=== PATIENT | female | born 1970 | race African-American/Black ===

== ENCOUNTER 2017-05-11 10:24 | Observation (INO) | payer SELFPAY ==
[~2017-05-11] VITALS: Ht 167.6 cm; Wt 95.0 kg
[~2017-05-11 10:24] MED LIST: IBUP-238 PO
[2017-05-11 10:32] VITALS: BP 145/89; PULSE 79; RESP 20; TEMP 98.8; O2SAT 99
--- NOTE | 2017-05-11 10:33 | PD ---
HPI Chief Complaint: chest pain Time Seen by Provider: 10:33 Travel History International Travel<30 days: No Contact w/Intl Traveler<30days: No History of Present Illness HPI 47-year-old female with PMH of untreated GERD and chest pain presents to the ED for evaluation of 03/12 midsternal chest pain. Onset while the patient was eating a sandwich. Patient states this was preceded by an episode of vomiting. She endorses accompanying shortness of breath and nausea. She denies palpitations or diaphoresis. She states this pain is similar to previous pains. She denies fever, chills, cough, abdominal pain, dysuria, back pain. She is unsure if she ever had a heart workup. She has no primary care. She is a poor historian. PFSH Past Medical History Arthritis: No Autoimmune Disease: No Blood Disorders: No Depression: Yes Heart Rhythm Problems: No Cancer: No Cardiac Catheterization: No Cardiovascular Problems: Yes High Cholesterol: No Chemotherapy: No Chest Pain: Yes (BEEN HOSPITALIZED FOR) Congestive Heart Failure: No Diabetes: No Endocrine: No Genitourinary: No Headaches: Yes Hypertension: No Immune Disorder: No Musculoskeletal: Yes Neurologic: Yes Psychiatric: Yes Reproductive: No Respiratory: Yes Immunizations Current: Yes Myocardial Infarction: No Radiation Therapy: No Past Surgical History Abdominal Surgery: Yes ( X 1) Cardiac Surgery: No Section: Yes Coronary Artery Bypass Graft: No Ear Surgery: No Endocrine Surgery: No Eye Surgery: No Genitourinary Surgery: No Gynecologic Surgery: Yes (Right Breast Biopsy) Oral Surgery: No Thoracic Surgery: No Other Surgery: Yes Social History Alcohol Use: No Tobacco Use: No Substance Use: No Allergies-Medications (Allergen,Severity, Reaction): Coded Allergies: No Known Allergies (Verified , 05/11/17) Reported Meds & Prescriptions Reported Meds & Active Scripts Active No Active Prescriptions or Reported Medications Review of Systems Except as stated in HPI: all other systems reviewed are Neg Physical Exam Narrative GENERAL: Well-nourished, well-developed nontoxic appearing after mental female in no acute distress. SKIN: Focused skin assessment warm/dry. HEAD: Normocephalic. EYES: No scleral icterus. No injection or drainage. NECK: Supple, trachea midline. No JVD or lymphadenopathy. CARDIOVASCULAR: Regular rate and rhythm without murmurs, gallops, or rubs. RESPIRATORY: Breath sounds clear and equal bilaterally. No accessory muscle use. GASTROINTESTINAL: Abdomen soft, non-tender, nondistended. Positive epigastric tenderness palpation. Active bowel signs. MUSCULOSKELETAL: No cyanosis, or edema. BACK: Nontender without obvious deformity. No CVA tenderness. Data Data Last Documented VS Vital Signs Date Time Temp Pulse Resp B/P Pulse Ox O2 Delivery O2 Flow Rate FiO2 05/11/17 10:52 100 Room Air 05/11/17 10:37 74 20 05/11/17 10:32 98.8 145/89 Orders Electrocardiogram (05/11/17 10:39) Ckmb (Isoenzyme) Profile (05/11/17 10:39) Complete Blood Count With Diff (05/11/17 10:39) Comprehensive Metabolic Panel (05/11/17 10:39) Magnesium (Mg) (05/11/17 10:39) Prothrombin Time / Inr (Pt) (05/11/17 10:39) Act Partial Throm Time (Ptt) (05/11/17 10:39) Troponin I (05/11/17 10:39) Lipase (05/11/17 10:39) Chest, Single Ap (05/11/17 10:39) Ecg Monitoring (05/11/17 10:39) Bilateral Bp Monitoring (05/11/17 10:39) Iv Access Insert/Monitor (05/11/17 10:39) Oximetry (05/11/17 10:39) Sodium Chloride 0.9% Flush (Ns Flush) (05/11/17 10:45) Pantoprazole Inj (Protonix Inj) (05/11/17 10:45) Aspirin (Aspirin) (05/11/17 11:00) CKMB (05/11/17 10:50) CKMB% (05/11/17 10:50) Admit Order (Ed Use Only) (05/11/17 11:32) Nitroglycerin Sl (Nitrostat Sl) (05/11/17 11:45) Labs Laboratory Tests Test 05/11/17 10:50 White Blood Count 5.2 TH/MM3 Red Blood Count 3.80 MIL/MM3 Hemoglobin 10.3 GM/DL Hematocrit 31.3 % Mean Corpuscular Volume 82.3 FL Mean Corpuscular Hemoglobin 27.1 PG Mean Corpuscular Hemoglobin 32.9 % Concent Red Cell Distribution Width 16.3 % Platelet Count 313 TH/MM3 Mean Platelet Volume 8.9 FL Neutrophils (%) (Auto) 45.7 % Lymphocytes (%) (Auto) 42.6 % Monocytes (%) (Auto) 9.4 % Eosinophils (%) (Auto) 1.2 % Basophils (%) (Auto) 1.1 % Neutrophils # (Auto) 2.4 TH/MM3 Lymphocytes # (Auto) 2.2 TH/MM3 Monocytes # (Auto) 0.5 TH/MM3 Eosinophils # (Auto) 0.1 TH/MM3 Basophils # (Auto) 0.1 TH/MM3 CBC Comment DIFF FINAL Differential Comment Prothrombin Time 10.7 SEC Prothromb Time International 1.0 RATIO Ratio Activated Partial 24.7 SEC Thromboplast Time Sodium Level 139 MEQ/L Potassium Level 3.2 MEQ/L Chloride Level 106 MEQ/L Carbon Dioxide Level 25.4 MEQ/L Anion Gap 8 MEQ/L Blood Urea Nitrogen 9 MG/DL Creatinine 0.72 MG/DL Estimat Glomerular Filtration 106 ML/MIN Rate Random Glucose 100 MG/DL Calcium Level 8.7 MG/DL Magnesium Level 1.9 MG/DL Total Bilirubin 0.3 MG/DL Aspartate Amino Transf 23 U/L (AST/SGOT) Alanine Aminotransferase 20 U/L (ALT/SGPT) Alkaline Phosphatase 63 U/L Total Creatine Kinase 386 U/L Creatine Kinase MB 1.9 NG/ML Creatine Kinase MB % 0.5 % Troponin I LESS THAN 0.02 NG/ML Total Protein 7.9 GM/DL Albumin 3.5 GM/DL Lipase 77 U/L [facility] Medical Decision Making Medical Screen Exam Complete: Yes Emergency Medical Condition: Yes Medical Record Reviewed: Yes (negative stress test 2009 with EF of 61%) Interpretation(s) EKG rate 83, sinus rhythm. NM 169, QRS 92, QTC 424. Normal axis. Minimal ST depressions. Reviewed by Dr. Smith. Differential Diagnosis GERD versus chest pain versus pneumonia versus ACS versus other Narrative Course 47-year-old female with PMH of untreated GERD and chest pain presents to the ED for evaluation of 6/10 midsternal chest pain. Onset while the patient was eating a sandwich, preceded by an episode of vomiting. ++ SOB and nausea. --- radiation, palpitations or diaphoresis. She states this pain is similar to previous pains. No primary care. Poor historian. Patient is hypertensive on presentation. Physical exam reveals a nontoxic-appearing black female in no acute distress. --- TTP over the precordium. + Epigastric tenderness. Exam otherwise unremarkable. She was administered ASA and Protonix. EKG as above. No acute disease on CXR. Cardiac enzymes negative 1. CBC, CMP otherwise unremarkable. Discussed the patient and workup with Dr. Smith who recommends chest pain center evaluation 2/[address] depressions on the EKG. on recheck the patient states her pain has not improved. She was administered sublingual nitroglycerin. Discussed the plan with the patient who is amenable. Please see chest pain center notes for disposition. Scripts No Active Prescriptions or Reported Meds Emily Moffett May 11, 2017 10:33
[2017-05-11] MEDS ORDERED: PANTOPRAZOLE SODIUM 40 MG VIAL IV PUSH ONE (10:45)
[2017-05-11] MEDS ORDERED: SODIUM CHLORIDE 0.9% FLUSH 10 ML FLUSH IVF PRN (10:45)
[2017-05-11 10:52] VITALS: O2SAT 100
[2017-05-11 11:00] LABS: AUTOMATED NEUTROPHIL # 2.4 TH/MM3 (1.8-7.7); BASOPHIL # 0.1 TH/MM3 (0-0.2); BASOPHIL % 1.1 % (0.0-2.0); EOSINOPHIL # 0.1 TH/MM3 (0-0.4); EOSINOPHIL % 1.2 % (0.0-4.0); HEMATOCRIT 31.3 % (35.0-46.0); HEMO FLAGS DIFF FINAL; LYMPH % 42.6 % (9.0-44.0); LYMPHOCYTE # 2.2 TH/MM3 (1.0-4.8); MEAN CELL VOLUME 82.3 FL (80.0-100.0); MEAN CORPUSCULAR HEMOGLOBIN 27.1 PG (27.0-34.0); MEAN CORPUSCULAR HGB CONC 32.9 % (32.0-36.0); MONO % 9.4 % (0.0-8.0); NEUT % 45.7 % (16.0-70.0); PLATELET COUNT 313 TH/MM3 (150-450); RED CELL DISTRIBUTION WIDTH 16.3 % (11.6-17.2); WHITE BLOOD COUNT 5.2 TH/MM3 (4.0-11.0)
[2017-05-11] MEDS ORDERED: ASPIRIN 325 MG TAB PO ONE (11:00)
[2017-05-11 11:08] LABS: APTT (PATIENT) 24.7 SEC (24.3-30.1); PROTHROMBIN TIME - PATIENT 10.7 SEC (9.8-11.6)
[2017-05-11 11:10] VITALS: BP 146/66
[2017-05-11 11:17] LABS: ALT (GPT) 20 U/L (10-53); ANION GAP 8 MEQ/L (5-15); AST (GOT) 23 U/L (15-37); BICARBONATE 25.4 MEQ/L (21.0-32.0); BLOOD UREA NITROGEN 9 MG/DL (7-18); CHLORIDE 106 MEQ/L (98-107); GLOMERULAR FILTRATION RATE 106 ML/MIN (>89); MAGNESIUM 1.9 MG/DL (1.5-2.5); POTASSIUM 3.2 MEQ/L (3.5-5.1); SODIUM (NA) 139 MEQ/L (136-145)
[2017-05-11 11:20] LABS: ALKALINE PHOSPHATASE 63 U/L (45-117); CREATINE KINASE 386 U/L (26-192); TOTAL BILIRUBIN ADULT 0.3 MG/DL (0.2-1.0)
--- NOTE | 2017-05-11 11:31 | RADRPT ---
EXAM DATE/TIME: 05/11/2017 10:46 [facility] COMPARISON: No previous studies available for comparison. INDICATIONS : Chest pain. MEDICAL HISTORY : None. SURGICAL HISTORY : None. ENCOUNTER: Initial ACUITY: 1 day PAIN SCORE: 8/10 LOCATION: Bilateral chest FINDINGS: A single view of the chest demonstrates the lungs to be symmetrically aerated without evidence of mas s, infiltrate or effusion. The cardiomediastinal contours are unremarkable. Osseous structures are intact. CONCLUSION: No acute disease. Collins Jeong MD on May 11, 2017 at 11:29 Board Certified Radiologist. This report was verified electronically.
[2017-05-11 11:37] LABS: CKMB 1.9 NG/ML (0.5-3.6)
[2017-05-11] MEDS: NITROGLYCERIN 0.4 MG SL 25 TABS/BTL SL SCH ×3 (11:44→11:53)
[2017-05-11] MEDS ORDERED: POTASSIUM CHLORIDE 20 MEQ CONTROLLED RELEASE TAB PO ONE (12:15)
[2017-05-11 13:00] VITALS: BP 118/72; PULSE 78; RESP 19; O2SAT 99
[2017-05-11] MEDS ORDERED: ACETAMINOPHEN 500 MG CPLT PO PRN (13:30)
[2017-05-11] MEDS ORDERED: ATROPINE/SCOPOLAM/HYOSCYAM/PB ELIXIR 10 ML CUP PO ONE (13:30)
[2017-05-11] MEDS ORDERED: LIDOCAINE VISCOUS 2% SOLN 15 ML UDC PO ONE (13:30)
[2017-05-11] MEDS ORDERED: ONDANSETRON HCL 4 MG/2 ML VIAL IV PRN (13:30)
[2017-05-11] MEDS ORDERED: ALUMINUM/MAGNESIUM/SIMETH 30 ML CUP PO ONE (13:30)
[2017-05-11] MEDS ORDERED: ACETAMINOPHEN/HYDROcodone 325 MG/7.5 MG TAB PO PRN (13:30)
[2017-05-11] MEDS ORDERED: SODIUM CHLORIDE 0.9% FLUSH 5 ML FLUSH IVF PRN (13:30)
--- NOTE | 2017-05-11 13:56 | HHI.HP ---
HPI Primary Care Physician No Primary Care Physician Chief Complaint Chest pain History of Present Illness This is a 47-year-old female that presents to the ED via ambulance with a complaint of substernal chest discomfort. She describes as a sharp pain. Has been intermittent for the last week. Occurring 2-3 times a day. It was lasting about 15-20 seconds however today it lasts a little bit longer but still less than 1 minute. This morning she had an episode of emesis after eating a bite of a sandwich and the discomfort occurred. States she has heartburn but takes nothing on a regular basis. She was short of breath. No diaphoresis. She cannot recall any prior cardiac testing but upon reviewing records she attempted a [place] protocol ETT in 2009 but could not walk long enough. [place] she had a nonischemic adenosine thallium stress test. Currently denies discomfort. Review of Systems General: Patient denies fevers, chills recent, and recent travel HEENT: Patient denies headache, sore throat, difficulty swallowing. Cardiovascular: Has the chest discomfort as mentioned above. Denies sensation of heart beating rapidly or irregularly. No syncope. Denies diaphoresis. Respiratory: She was short of breath at times. Denies inspirational chest discomfort. Denies coughing wheezing or hemoptysis. GI: She was nauseous this morning and one episode of emesis. It was nonbloody. Patient denies diarrhea, abdominal pain, bloody stools. Musculoskeletal: Patient denies joint pain or edema. Denies calf pain or edema. Neurovascular: Patient denies numbness, tingling, weakness in extremities. Denies headache. Endocrine: Denies polyuria and polydipsia. Hematologic: Denies easy bruising. Skin: Denies rash or itching. Past Family Social History Allergies: Coded Allergies: No Known Allergies (Verified , 05/11/17) Past Medical History Denies hypertension, hyperlipidemia, diabetes, and known CAD. Past Surgical History . Reported Medications Reported Meds & Active Scripts Active No Active Prescriptions or Reported Medications Active Ordered Medications Current Medications Medications (Trade) Dose Ordered Sig/Ibrahima Route Start Time Stop Time Status Last Admin (NS Flush) 2 ml UNSCH PRN IVF 05/11/17 10:45 05/11/17 11:24 (NS Flush) 2 ml UNSCH PRN IVF 05/11/17 13:30 UNV (NS Flush) 2 ml BID IVF 05/11/17 21:00 UNV (Tylenol) 500 mg Q4H PRN PO 05/11/17 13:30 UNV ([facility] 7.5-325 Mg) 1 tab Q4H PRN PO 05/11/17 13:30 UNV (Zofran Inj) 4 mg Q6H PRN IV 05/11/17 13:30 UNV (Aspirin) 325 mg DAILY PO 05/12/17 09:00 UNV (Xylocaine 2% Viscous) 10 ml STAT ONCE PO 05/11/17 13:30 05/11/17 13:31 UNV ( Liq) 10 ml NOW ONCE PO 05/11/17 13:30 05/11/17 13:31 UNV (Mag-Al Plus Susp Liq) 30 ml STAT ONCE PO 05/11/17 13:30 05/11/17 13:31 UNV Family History Denies family history of CAD. Social History Patient is a lifetime nonsmoker. Denies alcohol or illicit drugs. Physical Exam Vital Signs Vital Signs Date Time Temp Pulse Resp B/P Pulse Ox O2 Delivery O2 Flow Rate FiO2 05/11/17 13:00 78 19 118/72 99 Room Air 05/11/17 11:10 146/66 05/11/17 10:52 100 Room Air 05/11/17 10:37 74 20 99 Room Air 05/11/17 10:32 98.8 79 20 145/89 99 Physical Exam GENERAL: This is a well-nourished, well-developed patient, in no apparent distress. Patient speaks in clear complete sentences. Patient is pleasant. HEENT: Head is atraumatic and normocephalic. Neck is supple without lymphadenopathy and trachea is midline. No JVD or carotid bruits. CARDIOVASCULAR: Regular rate and rhythm without murmurs, gallops, or rubs. RESPIRATORY: Clear to auscultation. Breath sounds equal bilaterally. No wheezes , rales, or rhonchi. Chest wall is nontender. No use of accessory muscles. GASTROINTESTINAL: There is epigastric tenderness. No guarding or rebound. Abdomen is soft and nondistended. No obvious pulsatile mass or bruit. No CVA tenderness. Strong femoral pulses bilaterally. Normal bowel sounds in all quadrants. MUSCULOSKELETAL: Patient is moving upper and lower extremities freely. No calf tenderness or edema, no Homans sign. Strong pulses in upper and lower extremities. NEUROLOGICAL: Patient is alert and oriented. Cranial nerves 2-12 are grossly intact. No focal deficits and speech is clear. SKIN: No rash and turgor is normal. Laboratory Laboratory Tests Test 05/11/17 10:50 White Blood Count 5.2 Red Blood Count 3.80 Hemoglobin 10.3 Hematocrit 31.3 Mean Corpuscular Volume 82.3 Mean Corpuscular Hemoglobin 27.1 Mean Corpuscular Hemoglobin 32.9 Concent Red Cell Distribution Width 16.3 Platelet Count 313 Mean Platelet Volume 8.9 Neutrophils (%) (Auto) 45.7 Lymphocytes (%) (Auto) 42.6 Monocytes (%) (Auto) 9.4 Eosinophils (%) (Auto) 1.2 Basophils (%) (Auto) 1.1 Neutrophils # (Auto) 2.4 Lymphocytes # (Auto) 2.2 Monocytes # (Auto) 0.5 Eosinophils # (Auto) 0.1 Basophils # (Auto) 0.1 CBC Comment DIFF FINAL Differential Comment Prothrombin Time 10.7 Prothromb Time International 1.0 Ratio Activated Partial 24.7 Thromboplast Time Sodium Level 139 Potassium Level 3.2 Chloride Level 106 Carbon Dioxide Level 25.4 Anion Gap 8 Blood Urea Nitrogen 9 Creatinine 0.72 Estimat Glomerular Filtration 106 Rate Random Glucose 100 Calcium Level 8.7 Magnesium Level 1.9 Total Bilirubin 0.3 Aspartate Amino Transf 23 (AST/SGOT) Alanine Aminotransferase 20 (ALT/SGPT) Alkaline Phosphatase 63 Total Creatine Kinase 386 Creatine Kinase MB 1.9 Creatine Kinase MB % 0.5 Troponin I LESS THAN 0.02 Total Protein 7.9 Albumin 3.5 Lipase 77 Result Diagram: 05/11/17 1050 05/11/17 1050 Imaging Last 48 hours Impressions Chest X-Ray 05/11/17 1039 Signed Impressions: Service Date/Time: Thursday, May 11, 2017 10:46 - CONCLUSION: No acute disease. Collins Jeong MD Course Initial EKG has sinus rhythm with nonspecific inferior and lateral ST changes. These were similar to prior EKG from 2009. Assessment and Plan Assessment and Plan * Chest pain: Patient's first troponin is normal. She will be seen by Dr. Jason Cotto of cardiology in the chest pain center and undergo a Lexiscan. She'll be discharged home if stress test is nonischemic with instructions to follow-up with a local primary care physician. * GERD: Patient was given Protonix and ED. We will give GI cocktail. She should begin a PPI. Patient is stable at this time. She is agreeable to this plan. Josh Roy May 11, 2017 13:55
[2017-05-11 14:25] VITALS: BP 127/67; PULSE 81; RESP 18; O2SAT 100
[2017-05-11] MEDS ORDERED: REGADENOSON INJ 0.4 MG/5 ML SYR ONE (16:21)
--- NOTE | 2017-05-11 17:02 | HHI.DCPOC ---
Discharge Care Plan Diagnosis: (1) Chest pain (2) GERD (gastroesophageal reflux disease) Goals to Promote Your Health * To prevent worsening of your condition and complications * To maintain your health at the optimal level Directions to Meet Your Goals Take your medications as prescribed Follow your dietary instruction Follow activity as directed Keep your appointments as scheduled Take your immunizations and boosters as scheduled If your symptoms worsen call your PCP, if no PCP go to Urgent Care Center or Emergency Room Smoking is Dangerous to Your Health. Avoid second hand smoke Call the 24-hour hour crisis hotline for domestic abuse at Josh Roy May 11, 2017 17:02
--- NOTE | 2017-05-11 17:09 | RADRPT ---
EXAM DATE/TIME: 05/11/2017 15:19 [facility] COMPARISON: No previous studies available for comparison. INDICATIONS : Chest pain for 1 week. Angina. DOSE: 27.3 mCi Tc99m Myoview at stress. 8.1 mCi Tc99m Myoview at rest. 0.4 mg Lexiscan STRESS SYMPTOMS: Shortness of breath. EJECTION FRACTION: 64% MEDICAL HISTORY : None SURGICAL HISTORY : section. ENCOUNTER: Subsequent ACUITY: 1 week PAIN SCALE: 2/10 LOCATION: chest TECHNIQUE: The patient underwent pharmacologic stress with infusion of prescribed dose. Continuous ECG tracing was monitored during stress. Gated SPECT imaging was performed after stress and conventional SPECT i maging was performed at rest. The examination was performed on a SPECT/CT scanner, both attenuation and non-corrected datasets were reviewed. FINDINGS: DISTRIBUTION: The maximum perfused segment at stress is in the posterobasal wall. PERFUSION STUDY: The pattern of perfusion at stress is within normal limits. GATED STUDY: There is intact wall motion and thickening without hypokinetic or dyskinetic segments. CONCLUSION: Normal examination. RISK CATEGORY: Low (<1% Annual Mortality Rate) Collins Jeong MD on May 11, 2017 at 17:01 Board Certified Radiologist. This report was verified electronically.
[2017-05-11 17:10] VITALS: BP 146/78; PULSE 80; RESP 16; TEMP 98.8; O2SAT 99
[2017-05-11] MEDS ORDERED: SODIUM CHLORIDE 0.9% FLUSH 5 ML FLUSH IVF SCH (21:00)
--- NOTE | 2017-05-12 08:06 | EKG ---
Date Performed: 05/11/2017 Time Performed: 10:42:14 PTAGE: 47 years EKG: Sinus rhythm MINIMAL ST DEPRESSION BORDERLINE ECG PREVIOUS TRACING : 09/11/2010 01.15 DOCTOR: Dayron Lawton Interpretating Date/Time 05/12/2017 08:04:05
[2017-05-12] MEDS ORDERED: ASPIRIN 325 MG TAB PO SCH (09:00)
--- NOTE | 2017-05-12 13:31 | TR ---
Date Performed: 05/11/2017 Time Performed: 16:01:58 DOCTOR: Gerry Wynne DRUG LIST: CLINICAL HISTORY: REASON FOR TEST: Angina REASON FOR ENDING: OBSERVATION: CONCLUSION: Lexiscan stress test was performed under standard four minute protocol. Radionuclid e was injected one minute prior to ending the test. No electrocardiographic abormalities were present to suggest ischemia. Nuclear imaging and interpretation are pending. COMMENTS:
--- NOTE | 2017-05-12 13:43 | EKG ---
Date Performed: 05/11/2017 Time Performed: 13:50:02 PTAGE: 47 years EKG: Sinus rhythm MINIMAL ST DEPRESSION BORDERLINE ECG PREVIOUS TRACING : 05/11/2017 10.42 Since previous tracing, no significant change noted DOCTOR: Gerry Wynne Interpretating Date/Time 05/12/2017 13:41:53
== END 2017-05-11 19:14 | disposition left against medical advice (07) ==
LOC: NEPD 10:24 → NEDA 11:34 → NEPHCDU 15:30
PROVIDERS: ADMIT Internal Medicine Cardiovascular Disease; ATTEND Internal Medicine Cardiovascular Disease
DX: R07.89 Other chest pain (principal); I10 Essential (primary) hypertension; K21.9 Gastro-esophageal reflux disease without esophagitis
CPT/HCPCS: 71010; 78452; 80053; 82550; 82552; 83690; 83735; 84484; 84703; 85025; 85379; 85610; 85730; 93005; 93017; 96374; 99285; A9502; C9113; G0378; J2785

== ENCOUNTER 2017-08-02 02:48 | Emergency (ER) | payer OTHER ==
[~2017-08-02] VITALS: Ht 167.6 cm; Wt 91.0 kg
[2017-08-02] MEDS ORDERED: IOHEXOL 350 MG/ML 10 ML VIAL (for RAD DIAG) IVCONTRAST ONE (02:49)
[2017-08-02 02:56] VITALS: BP 138/78; PULSE 81; RESP 18; O2SAT 99
[2017-08-02] MEDS ORDERED: ASPIRIN 81 MG CHEW TAB PO ONE (03:15)
[2017-08-02] MEDS ORDERED: SODIUM CHLORIDE 0.9% FLUSH 10 ML FLUSH IVF PRN (03:15)
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
[2017-08-02 03:37] LABS: AUTOMATED NEUTROPHIL # 3.4 TH/MM3 (1.8-7.7); BASOPHIL # 0.1 TH/MM3 (0-0.2); BASOPHIL % 1.3 % (0.0-2.0); EOSINOPHIL # 0.2 TH/MM3 (0-0.4); EOSINOPHIL % 2.4 % (0.0-4.0); HEMATOCRIT 29.2 % (35.0-46.0); HEMO FLAGS DIFF FINAL; LYMPH % 34.8 % (9.0-44.0); LYMPHOCYTE # 2.2 TH/MM3 (1.0-4.8); MEAN CELL VOLUME 79.8 FL (80.0-100.0); MEAN CORPUSCULAR HEMOGLOBIN 25.6 PG (27.0-34.0); MEAN CORPUSCULAR HGB CONC 32.1 % (32.0-36.0); MONO % 7.8 % (0.0-8.0); NEUT % 53.7 % (16.0-70.0); PLATELET COUNT 353 TH/MM3 (150-450); RED BLOOD COUNT 3.67 MIL/MM3 (4.00-5.30); RED CELL DISTRIBUTION WIDTH 16.6 % (11.6-17.2); WHITE BLOOD COUNT 6.3 TH/MM3 (4.0-11.0)
--- NOTE | 2017-08-02 03:57 | RADRPT ---
EXAM DATE/TIME: 08/02/2017 03:23 [facility] COMPARISON: CHEST SINGLE AP, May 11, 2017, 10:46. INDICATIONS : Short of breath. MEDICAL HISTORY : None. SURGICAL HISTORY : None. ENCOUNTER: Initial ACUITY: 1 day PAIN SCORE: 0/10 LOCATION: Bilateral chest FINDINGS: A single view of the chest demonstrates the lungs to be symmetrically aerated without evidence of mas s, infiltrate or effusion. The cardiomediastinal contours are unremarkable. Osseous structures are intact. CONCLUSION: No acute disease. Collins Jeong MD on August 02, 2017 at 3:55 Board Certified Radiologist. This report was verified electronically.
[2017-08-02 03:59] LABS: APTT (PATIENT) 24.7 SEC (24.3-30.1); PROTHROMBIN TIME - PATIENT 10.9 SEC (9.8-11.6)
[2017-08-02 04:08] LABS: ALKALINE PHOSPHATASE 87 U/L (45-117); CREATINE KINASE 269 U/L (26-192); TOTAL BILIRUBIN ADULT 0.2 MG/DL (0.2-1.0)
[2017-08-02 04:09] LABS: ALT (GPT) 18 U/L (10-53); ANION GAP 8 MEQ/L (5-15); AST (GOT) 21 U/L (15-37); BICARBONATE 25.3 MEQ/L (21.0-32.0); BLOOD UREA NITROGEN 14 MG/DL (7-18); CHLORIDE 103 MEQ/L (98-107); GLOMERULAR FILTRATION RATE 131 ML/MIN (>89); POTASSIUM 4.5 MEQ/L (3.5-5.1); SODIUM (NA) 136 MEQ/L (136-145)
[2017-08-02 04:22] LABS: CKMB 1.8 NG/ML (0.5-3.6)
--- NOTE | 2017-08-02 04:59 | RADRPT ---
EXAM DATE/TIME: 08/02/2017 04:44 [facility] COMPARISON: No previous studies available for comparison. INDICATIONS : Chest pain. Elevated D-Dimer. IV CONTRAST: 75 cc Omnipaque 350 (iohexol) IV RADIATION DOSE: 23.09 CTDIvol (mGy) MEDICAL HISTORY : Gastroesophageal reflux disease. Hypertension. SURGICAL HISTORY : section. ENCOUNTER: Initial ACUITY: 1 day PAIN SCALE: 10/10 LOCATION: chest TECHNIQUE: Volumetric scanning of the chest was performed using a pulmonary embolism protocol MIP images were re constructed. Using automated exposure control and adjustment of the mA and/or kV according to patien t size, radiation dose was kept as low as reasonably achievable to obtain optimal diagnostic quality images. DICOM format image data is available electronically for review and comparison. Follow-up recommendations for detected pulmonary nodules are based at a minimum on nodule size and pa tient risk factors according to Fleischner Society Guidelines. FINDINGS: PULMONARY ARTERIES: No filling defects are seen in the pulmonary arteries through the segmental level. LUNGS: 5 mm noncalcified nodule in the lateral right lung base. No evidence of infiltrate. PLEURAE: There is no pleural thickening or pleural effusion. MEDIASTINUM: There is good visualization of the great vessels of the middle mediastinum. No evidence of mediastin al or hilar adenopathy/mass. MUSCULOSKELETAL: Within normal limits for patient age. MISCELLANEOUS: The visualized upper abdominal organs demonstrate no acute abnormality. CONCLUSION: No evidence of pulmonary embolism. 5 mm right lung base nodule need to be followed depending on patient's smoking history and other risk factors Collins Jeong MD on August 02, 2017 at 4:53 Board Certified Radiologist. This report was verified electronically.
--- NOTE | 2017-08-02 18:17 | EKG ---
Date Performed: 08/02/2017 Time Performed: 03:02:43 PTAGE: 47 years EKG: Sinus rhythm POSSIBLE LEFT ATRIAL ENLARGEMENT BORDERLINE ECG Compared to prior tracing no significant change PREVIOUS TRACING : 05/11/2017 13.50.02 DOCTOR: Izabella Rangel Interpretating Date/Time 08/02/2017 18:17:16
== END 2017-08-02 05:25 | disposition home or self-care (01) ==
LOC: NEPC 02:48
DX: R07.9 Chest pain, unspecified (principal); R91.1 Solitary pulmonary nodule; I10 Essential (primary) hypertension; K21.9 Gastro-esophageal reflux disease without esophagitis; R94.31 Abnormal electrocardiogram [ECG] [EKG]; E78.00 Pure hypercholesterolemia, unspecified
CPT/HCPCS: 71010; 71275; 80053; 82550; 82552; 83690; 83735; 83880; 84484; 84703; 85025; 85379; 85610; 85730; 93005; 99285; Q9967

== ENCOUNTER 2017-12-28 17:46 | Emergency (ER) | payer OTHER ==
[2017-12-28 18:05] VITALS: BP 126/60; PULSE 90; RESP 16; TEMP 98.1; O2SAT 99
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
== END 2017-12-28 19:20 | disposition home or self-care (01) ==
LOC: NEPK 17:46
DX: S09.90XA Unspecified injury of head, initial encounter (principal); W22.8XXA Striking against or struck by other objects, initial encounter; Y92.830 Public park as the place of occurrence of the external cause
CPT/HCPCS: 99283

== ENCOUNTER 2018-01-06 08:38 | Emergency (ER) | payer OTHER ==
[~2018-01-06] VITALS: Ht 167.6 cm; Wt 90.0 kg
[2018-01-06 08:43] VITALS: BP 118/58; PULSE 85; RESP 16; TEMP 98.8
[2018-01-06] MEDS ORDERED: ZIPR1CAP8 PO (08:54)
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
== END 2018-01-06 12:16 | disposition home or self-care (01) ==
LOC: NEPE 08:38
DX: F07.81 Postconcussional syndrome (principal); M50.322 Other cervical disc degeneration at C5-C6 level; F32.9 Major depressive disorder, single episode, unspecified; E78.00 Pure hypercholesterolemia, unspecified; K21.9 Gastro-esophageal reflux disease without esophagitis; I10 Essential (primary) hypertension
CPT/HCPCS: 70450; 72125; 99284